=== PATIENT | male | born 1995 | race Caucasian/White ===

== ENCOUNTER 2022-05-25 18:36 | Emergency (ER) | payer OTHER ==
[~2022-05-25] VITALS: Ht 180.3 cm; Wt 105.0 kg
[2022-05-25] MEDS ORDERED: TETRACAINE 0.5% OPHTH SOLN 4ML XX ONE (20:20)
[2022-05-25] MEDS ORDERED: FLUORESCEIN OPHTH 1 MG STRIP XX ONE (20:20)
[2022-05-25 21:00] VITALS: BP 111/77
== END 2022-05-25 21:07 | disposition home or self-care (01) ==
LOC: M ED 18:36
DX: H57.13 Ocular pain, bilateral (principal)

== ENCOUNTER 2022-06-23 13:43 | Emergency (ER) | payer OTHER ==
[~2022-06-23] VITALS: Ht 177.8 cm; Wt 107.0 kg
[2022-06-23 14:47] LABS: BASO % 0.4 % (0.0-1.0); EOS # 0.1 10^3/uL (0.0-0.5); EOS % 1.4 % (0.0-3.0); HEMOGLOBIN 14.9 g/dl (13.5-17.5); LYMPH # 1.7 10^3/uL (1.5-5.0); MEAN CORPUSCULAR HEMOGLOBIN 26.2 pg (27.0-33.0); MEAN CORPUSCULAR HGB CONC 32.4 g/dl (32.0-36.5); MEAN CORPUSCULAR VOLUME 80.8 fl (80.0-96.0); MONO # 0.5 10^3/uL (0.0-0.8); MONO % 6.6 % (2.0-8.0); NEUTROPHILS # 4.7 10^3/uL (1.5-8.5); NEUTROPHILS % 67.5 % (36.0-66.0); PLATELET COUNT, AUTOMATED 201 10^3/uL (150-450); RED BLOOD COUNT 5.69 10^6/uL (4.30-6.10)
[2022-06-23 15:37] LABS: ALBUMIN 4.3 G/DL (3.2-5.2); ALKALINE PHOSPHATASE 94 U/L (46-116); ALT/SGPT 25 U/L (7.0-40); AST/SGOT 15 U/L (<34); BILIRUBIN,DIRECT 0.2 MG/DL (<0.4); BILIRUBIN,TOTAL 0.5 MG/DL (0.3-1.2); BLOOD UREA NITROGEN 18 MG/DL (9-23); CALCIUM LEVEL 9.1 MG/DL (8.5-10.1); CARBON DIOXIDE LEVEL 30 MMOL/L (20-31); CHLORIDE LEVEL 103 MMOL/L (98-107); GLOMERULAR FILTRATION RATE > 60.0 (>60); GLUCOSE, FASTING 88 MG/DL (60-100); LIPASE 35 U/L (12-53); POTASSIUM SERUM 4.2 MMOL/L (3.5-5.1); SODIUM LEVEL 142 MMOL/L (136-145); TOTAL PROTEIN 7.2 G/DL (5.7-8.2)
[2022-06-23 16:19] VITALS: BP 129/75
== END 2022-06-23 16:28 | disposition home or self-care (01) ==
LOC: M ED 13:43
DX: R10.31 Right lower quadrant pain (principal)

== ENCOUNTER 2022-08-25 02:51 | Emergency (ER) | payer OTHER ==
[~2022-08-25] VITALS: Ht 180.3 cm; Wt 97.7 kg
[2022-08-25 07:02] VITALS: BP 123/76
[2022-08-25] MEDS ORDERED: DOXYCYCLINE HYCLATE 100MG TABLET PO ONE (08:00)
[2022-08-25] MEDS ORDERED: DOXY-443 PO (08:01)
[2022-08-25 10:54] LABS: GC DNA AMPLIFICATION NEGATIVE (NEGATIVE)
== END 2022-08-25 08:12 | disposition home or self-care (01) ==
LOC: M ED 02:51
DX: L73.9 Follicular disorder, unspecified (principal); R10.2 Pelvic and perineal pain

== ENCOUNTER 2023-02-21 14:50 | Emergency (ER) | payer OTHER ==
[~2023-02-21] VITALS: Ht 180.3 cm; Wt 101.5 kg
[~2023-02-21 14:50] MED LIST: DOXY-443 PO
[2023-02-21] MEDS ORDERED: KETOROLAC 30 MG/ML 1ML VIAL IV ONE (17:30)
[2023-02-21 18:17] LABS: GC DNA AMPLIFICATION NEGATIVE (NEGATIVE)
[2023-02-21 18:30] LABS: BASO % 0.4 % (0.0-1.0); EOS % 0.4 % (0.0-3.0); HEMATOCRIT 43.5 % (42.0-52.0); HEMOGLOBIN 14.4 g/dl (13.5-17.5); LYMPH # 1.9 10^3/uL (1.5-5.0); LYMPH % 18.8 % (24.0-44.0); MEAN CORPUSCULAR HEMOGLOBIN 26.4 pg (27.0-33.0); MEAN CORPUSCULAR HGB CONC 33.1 g/dl (32.0-36.5); MEAN CORPUSCULAR VOLUME 79.7 fl (80.0-96.0); MONO # 0.7 10^3/uL (0.0-0.8); MONO % 6.8 % (2.0-8.0); NEUTROPHILS # 7.4 10^3/uL (1.5-8.5); NEUTROPHILS % 73.4 % (36.0-66.0); PLATELET COUNT, AUTOMATED 212 10^3/uL (150-450); RED BLOOD COUNT 5.46 10^6/uL (4.30-6.10); WHITE BLOOD COUNT 10.1 10^3/uL (4.0-10.0)
[2023-02-21] MEDS ORDERED: TAMSULOSIN 0.4 MG CAP PO ONE (18:35)
[2023-02-21] MEDS ORDERED: NS 1,000 ML IV ONE (18:35)
[2023-02-21] MEDS ORDERED: FLOM0.4C39 PO (19:34)
[2023-02-21] MEDS ORDERED: KETO10TAB PO (19:34)
[2023-02-21 19:42] VITALS: BP 133/76; TEMP 98.4; O2SAT 100
== END 2023-02-21 20:00 | disposition home or self-care (01) ==
LOC: M ED 14:50
DX: N20.1 Calculus of ureter (principal); R35.89 Other polyuria; R31.9 Hematuria, unspecified
CPT/HCPCS: 74176; 80047; 81001; 85025; 87810; 87850; 96374; 99284; J1885